=== PATIENT | female | born 1985 | race Hispanic/Latino ===

== ENCOUNTER 2016-11-25 16:01 | Emergency (ER) | payer OTHER ==
[2016-11-25 16:04] VITALS: BMI 22.8
[2016-11-25 16:07] VITALS: O2SAT 98
[2016-11-25 17:09] LABS: RBC URINE 9 /hpf (0-3); URINE BACTERIA RARE (<OCC); URINE BILIRUBIN NEGATIVE (NEGATIVE); URINE BLOOD NEGATIVE (NEGATIVE); URINE CALCIUM OXALATE CRYSTALS MOD /hpf (<OCC); URINE GLUCOSE (UA) NORMAL (Normal); URINE KETONE TRACE mg/dL (NEGATIVE); URINE LEUKOCYTE ESTERASE TRACE Leu/uL (Negative); URINE PROTEIN 2+ mg/dL (NEGATIVE); URINE UROBILINOGEN NORMAL mg/dL (0.2-1.0); WBC URINE 39 /hpf (0-5)
[2016-11-25 17:12] LABS: URINE COLOR YELLOW (YELLOW)
--- NOTE | 2016-11-25 17:19 | C.PDOC ---
History Of Present Illness 31 yr old female presents to the ER with complaints of productive cough, sore throat, fever, fatigue and nausea for the past 3-4 days. Patient states she has been taking Dayquill with no improvement. Patient reports she lives at a halfway. Patient denies chest pain, SOB, vomiting, abdominal pain, diarrhea, headache, weakness or numbness. Time Seen by Provider: 11/25/16 16:08 Chief Complaint (Nursing): Flu-like Symptoms History Per: Patient History/Exam Limitations: no limitations Onset/Duration Of Symptoms: Days (3-4) Current Symptoms Are (Timing): Still Present Sick Contacts (Context): None Past Medical History Reviewed: Historical Data, Nursing Documentation, Vital Signs Vital Signs: Last Vital Signs Temp 98.3 F 11/25/16 18:42 Pulse 87 11/25/16 18:42 Resp 16 11/25/16 18:42 BP 101/62 11/25/16 18:42 Pulse Ox 98 11/25/16 19:09 - Medical History PMH: Depression, Hyperlipidemia Family History: States: No Known Family Hx - Social History Hx Alcohol Use: No Hx Substance Use: No - Immunization History Hx Tetanus Toxoid Vaccination: No (not sure of last tetanus) Hx Influenza Vaccination: Yes Hx Pneumococcal Vaccination: No Review Of Systems Except As Marked, All Systems Reviewed And Found Negative. Constitutional: Positive for: Fever (Subjective ), Other (Fatigue ) ENT: Positive for: Throat Pain (Sore throat ) Cardiovascular: Negative for: Chest Pain Respiratory: Positive for: Cough (Productive ). Negative for: Shortness of Breath Gastrointestinal: Positive for: Nausea. Negative for: Vomiting, Abdominal Pain , Diarrhea Neurological: Negative for: Weakness, Numbness, Headache Physical Exam - Physical Exam Appears: Well, Non-toxic, No Acute Distress Skin: Warm, Dry, No Rash Head: Atraumatic, Normacephalic Oral Mucosa: Moist Throat: Erythema (Mild pharyngeal erythema), No Exudate, No Drooling Neck: Normal, Normal ROM, Supple Chest: Symmetrical, No Tenderness Cardiovascular: Rhythm Regular, No Murmur Respiratory: Normal Breath Sounds, No Rales, No Rhonchi, No Stridor, No Wheezing Gastrointestinal/Abdominal: Normal Exam, Soft, No Tenderness, No Guarding, No Rebound Extremity: Normal ROM, No Swelling Neurological/Psych: Oriented x3, Normal Speech, Normal Motor ED Course And Treatment O2 Sat by Pulse Oximetry: 98 - Other Rad CXR X-Ray: Viewed By Me, Read By Radiologist Interpretation: HISTORY: fever/cough. COMPARISON: None available. TECHNIQUE : Chest PA and lateral. FINDINGS: LUNGS: Mild pleural thickening. Minimal bibasilar atelectasis. No focal consolidation. Please note that chest x-ray has limited sensitivity for the detection of pulmonary masses. PLEURA: No significant pleural effusion identified. No definite pneumothorax . CARDIOVASCULAR: The cardiomediastinal silhouette appears within normal limits of size. OSSEOUS STRUCTURES: No acute osseous abnormality identified. VISUALIZED UPPER ABDOMEN: Unremarkable. OTHER FINDINGS: None. IMPRESSION: Mild biapical pleural thickening. Minimal bibasilar atelectasis. Progress Note: CXR was ordered and was negative for any findings. Urinalysis is positive for UTI and patient is treated with bactrim PO. Also treated with Tylenol for the fever. Medical Decision Making Medical Decision Making: PLAN: * CXR * Influenza * Rapid Strep * Urinalysis * Bactrim PO * Tylenol PO Disposition - Disposition Disposition: HOME/ ROUTINE Disposition Time: 19:06 Condition: STABLE Additional Instructions: Follow up with PMD/Clinic within 1-2 days. Return to ED if feel worse. 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 - Scribe Statement The provider has reviewed the documentation as recorded by the Scribe Nely Edwards All medical record entries made by the Tommieiberika were at my direction and personally dictated by me. I have reviewed the chart and agree that the record accurately reflects my personal performance of the history, physical exam, medical decision making, and the department course for this patient. I have also personally directed, reviewed, and agree with the discharge instructions and disposition.
--- NOTE | 2016-11-25 17:56 | RAD ---
HISTORY: fever/cough COMPARISON: None available. TECHNIQUE: Chest PA and lateral FINDINGS: LUNGS: Mild pleural thickening. Minimal bibasilar atelectasis. No focal consolidation. Please note that chest x-ray has limited sensitivity for the detection of pulmonary masses. PLEURA: No significant pleural effusion identified. No definite pneumothorax . CARDIOVASCULAR: The cardiomediastinal silhouette appears within normal limits of size. OSSEOUS STRUCTURES: No acute osseous abnormality identified. VISUALIZED UPPER ABDOMEN: Unremarkable. OTHER FINDINGS: None. IMPRESSION: Mild biapical pleural thickening. Minimal bibasilar atelectasis.
[2016-11-25 18:43] VITALS: BP 101/62; PULSE 87; RESP 16; TEMP 98.3
[2016-11-25] MEDS ORDERED: Tmp-Smz 800 mg-160 mg DS Tab PO STA (19:04)
[2016-11-25] MEDS ORDERED: Tmp-Smz 800 mg-160 mg DS Tab ONE (19:09)
== END 2016-11-25 19:21 | disposition home or self-care (01) ==
LOC: C.ER 16:01
DX: J11.1 Influenza due to unidentified influenza virus with other respiratory manifestations (principal); N39.0 Urinary tract infection, site not specified

== ENCOUNTER 2016-12-29 10:54 | Emergency (ER) | payer OTHER ==
[2016-12-29 10:54] VITALS: BMI 22.8
[2016-12-29 11:06] VITALS: BP 99/68; PULSE 95; RESP 20; TEMP 97.8; O2SAT 100
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
== END 2016-12-29 13:08 | disposition home or self-care (01) ==
LOC: C.ER 10:54
DX: Z04.41 Encounter for examination and observation following alleged adult rape (principal)